=== PATIENT | female | born 1960 | race Caucasian/White ===

== ENCOUNTER 2018-09-18 11:21 | Inpatient (IN) | payer BC ==
[2018-09-12 14:39] LABS: BASOPHILS # (AUTO) 0.1 X10'3 (0-0.2); BASOPHILS % (AUTO) 0.9 % (0-1); EOSINOPHILS # (AUTO) 0.1 X10'3 (0-0.9); EOSINOPHILS % (AUTO) 1.3 % (0-6); LYMPHOCYTES # (AUTO) 1.8 X10'3 (1.1-4.8); LYMPHOCYTES % (AUTO) 24.6 % (21-51); MEAN CORPUSCULAR HEMOGLOBIN 28.9 PG (27.0-31.0); MEAN CORPUSCULAR HGB CONC 32.7 g/dL (33.0-36.5); MEAN CORPUSCULAR VOLUME 88.5 FL (78-98); MEAN PLATELET VOLUME 7.7 FL (7.4-10.4); MONOCYTES # (AUTO) 0.7 X10'3 (0-0.9); MONOCYTES % (AUTO) 9.5 % (2-12); NEUTROPHILS # (AUTO) 4.7 X10'3 (1.8-7.7); NEUTROPHILS % (AUTO) 63.7 % (42-75); PRE OP HEMATOCRIT 41.2 % (35.0-45.0); PRE OP HEMOGLOBIN 13.5 g/dL (12.0-16.0); PRE OP PLATELET COUNT 308 X10'3 (140-440); RED BLOOD COUNT 4.65 X10'6 (4.20-5.60); RED CELL DISTRIBUTION WIDTH 14.2 % (11.5-14.5)
[2018-09-12 14:47] LABS: PRE OP PROTIME 10.3 SECONDS (9.0-12.0)
[2018-09-12 14:59] LABS: ALBUMIN 3.5 G/DL (3.4-5.0); ALBUMIN/GLOBULIN RATIO 0.7 (1.1-1.5); ALKALINE PHOSPHATASE 124 IU/L (46-116); BLOOD UREA NITROGEN 19 MG/DL (7-18); BUN/CREATININE RATIO 24.4 (6.6-38.0); CALCIUM 9.1 MG/DL (8.5-10.1); CHLORIDE 109 MMOL/L (99-107); CREATININE 0.78 MG/DL (0.40-0.90); PRE OP ALT 33 U/L (30-65); PRE OP ANION GAP 8 (8-16); PRE OP AST 14 U/L (10-37); PRE OP BILIRUB, TOTAL 0.3 MG/DL (0.0-1.0); PRE OP GLUCOSE 93 MG/DL (70-104); PRE OP POTASSIUM 4.1 MMOL/L (3.4-5.1); PRE OP SODIUM 142 MMOL/L (135-145); TOTAL CARBON DIOXIDE 24.9 MMOL/L (24-32); TOTAL PROTEIN 8.2 G/DL (6.4-8.2); eGFR 76 ML/MIN
[~2018-09-18] VITALS: Ht 160 cm; Wt 91.2 kg
[2018-09-18] VITALS (14 sets, daily range): BP systolic 95–133; BP diastolic 59–87
[~2018-09-18 11:21] MED LIST: ACET-2615 PO; HYDROmorphone 1 mg/ml syringe IV PRN; HYDROmorphone inj. 0.5 MG/0.5 ML DISP.SYRIN IV PRN; LEVO125T PO; acetaminophen 325mg tablet PO PRN; bisacodyl 10mg suppository rectal RC PRN; diphenhydrAMINE 25mg capsule PO PRN; magnesium hydroxide 30ml (MOM) UD suspension PO PRN; ondansetron/PF 4mg/2ml inj IV PRN
[2018-09-18] MEDS ORDERED: ringers solution, lacted 1,000 ML IV SCH ×2 (12:15→16:56)
[2018-09-18] MEDS ORDERED: cefazolin/dext.iso 2gm/100 ML IV ONE (12:15)
[2018-09-18] MEDS ORDERED: famotidine 20mg tablet PO ONE (12:15)
[2018-09-18] MEDS ORDERED: vancomycin inj 1,500 MG in normal saline 300ml IV soln IV ONE (12:15)
[2018-09-18] MEDS: acetaminophen 325mg tablet PO SCH ×2 (14:00→20:31)
[2018-09-18] MEDS ORDERED: ROPIVAcaine 0.5% (5mg/ml) 30ml vial ONE ×2 (14:04→18:42)
[2018-09-18] MEDS ORDERED: ketorolac trometh. 30mg/ml inj. ONE (14:04)
[2018-09-18] MEDS ORDERED: tranexamic acid inj. 900 MG in normal saline 100ml IV soln 100 ML IV ONE ×6 (14:40→22:15)
[2018-09-18] MEDS ORDERED: tetracaine 1% (10mg/ml) pres. free inj. ONE (14:52)
[2018-09-18] MEDS ORDERED: fentaNYL/PF 50MCG/1 ML 2ML syringe ONE (15:40)
[2018-09-18] MEDS ORDERED: MIDAZolam 1mg/ml 10ml vial ONE (15:40)
[2018-09-18] MEDS: ceFAZolin 1GM/D5W- ADD-VANTAGE 50 ML IV SCH ×2 (16:00→23:45)
[2018-09-18] MEDS ORDERED: ePHEDrine 50MG/ML INJ. ONE (16:12)
[2018-09-18] MEDS ORDERED: propofol inj 20 ML IV ONE ×3 (16:51→18:42)
[2018-09-18] MEDS ORDERED: ROPIVAcaine 0.2%/PF PAIN PUMP 550 ML IJ SCH (16:56)
[2018-09-18] MEDS ORDERED: ondansetron/PF 4mg/2ml inj IV PRN (17:00)
[2018-09-18] MEDS ORDERED: meperidine/PF 25mg/ml syringe IV PRN ×3 (17:00)
[2018-09-18] MEDS ORDERED: proCHLORperazine 10 MG/2 ml inj IV PRN (17:00)
[2018-09-18] MEDS ORDERED: morphine 4 MG/ML inj SYRINge IV PRN ×2 (17:00)
[2018-09-18] MEDS: potassium cl 20mEq in 1/2 NS 1,000 ML IV SCH ×2 (18:10→20:29)
--- NOTE | 2018-09-18 19:15 | NUR ---
Received from OR via BED , accompanied by Anesthesiologist DR DUKES and report given by Anesthesiolgist. PATIENT WAKING UP, DENIES PAIN, V/S WNL, NEUROVASCULAR CHECKS INTACT, 20G PIV LUE , CATERINA DRESSING TO LEFT KNEE CDI W/ COLD POWDER PACK AND ON QUE BALL AND W/ SCD ON. F/C DRAINING CLEAR YELLOW URINE. SENSATION T-11.
--- NOTE | 2018-09-18 19:55 | NUR ---
PATIENT A&OX4, DENIES PAIN, V/S WNL, NEUROVASCULAR CHECKS INTACT, 20G PIV LUE , CATERINA DRESSING TO LEFT KNEE CDI W/ COLD POWDER PACK AND ON QUE BALL AND W/ SCD ON. F/C DRAINING CLEAR YELLOW URINE. SENSATION T-11. . PATIENT TAKEN TO 4015 WITH ALL BELONGINGS AND HOOKED UP TO MONITORS IN ROOM AND REPORT GIVEN TO [employer] REPAIRER WHO HAS TAKEN OVER PATIENT CARE.
[2018-09-18] MEDS ORDERED: vancomycin/NS 1 GM ADD-VANTAGE 250 ML IV SCH (20:00)
[2018-09-18] MEDS: sennosides 8.6mg tablet PO SCH (20:32)
[2018-09-18] MEDS: oxyCODONE IR 5mg (immed. release) tablet PO PRN (23:43)
[2018-09-19] MEDS: acetaminophen 325mg tablet PO SCH ×4 (01:21→20:43)
[2018-09-19 02:00] VITALS: BP 108/63
[2018-09-19] MEDS: potassium cl 20mEq in 1/2 NS 1,000 ML IV SCH ×3 (02:10→18:10)
[2018-09-19] MEDS: oxyCODONE IR 5mg (immed. release) tablet PO PRN ×4 (04:29→20:44)
[2018-09-19 06:00] VITALS: BP 102/63
--- NOTE | 2018-09-19 06:20 | NUR ---
Problems reprioritized. Patient report given, questions answered & plan of care reviewed with Bre KING.
--- NOTE | 2018-09-19 06:51 | NUR ---
Problems reprioritized. Patient report given, questions answered & plan of care reviewed with Rosamaria KING.
[2018-09-19 07:17] LABS: BASOPHILS % (AUTO) 0.6 % (0-1); EOSINOPHILS # (AUTO) 0.1 X10'3 (0-0.9); EOSINOPHILS % (AUTO) 0.9 % (0-6); HEMATOCRIT 33.2 % (35.0-45.0); HEMOGLOBIN 11.1 g/dl (12.0-16.0); LYMPHOCYTES % (AUTO) 14.5 % (21-51); MEAN CORPUSCULAR HEMOGLOBIN 30.3 PG (27.0-31.0); MEAN CORPUSCULAR HGB CONC 33.4 g/dL (33.0-36.5); MEAN CORPUSCULAR VOLUME 90.6 FL (78-98); MEAN PLATELET VOLUME 7.8 FL (7.4-10.4); MONOCYTES # (AUTO) 0.7 X10'3 (0-0.9); MONOCYTES % (AUTO) 9.4 % (2-12); NEUTROPHILS # (AUTO) 5.3 X10'3 (1.8-7.7); NEUTROPHILS % (AUTO) 74.6 % (42-75); PLATELET COUNT 202 X10'3 (140-440); RED BLOOD COUNT 3.67 X10'6 (4.20-5.60); RED CELL DISTRIBUTION WIDTH 14.3 % (11.5-14.5); WHITE BLOOD COUNT 7.1 X10'3 (4.5-11.0)
[2018-09-19 07:35] LABS: ANION GAP 8 (8-16); CHLORIDE 107 MMOL/L (99-107); POTASSIUM 4.4 MMOL/L (3.5-5.1); SODIUM 139 MMOL/L (135-145); TOTAL CARBON DIOXIDE 24.2 MMOL/L (24-32)
[2018-09-19] MEDS: aspirin 325mg tablet PO SCH (07:53)
[2018-09-19] MEDS ORDERED: levoTHYROXINE 125mcg tablet PO SCH (08:00)
[2018-09-19 10:00] VITALS: BP 106/64
[2018-09-19] MEDS: levoTHYROXINE 175mcg tablet PO SCH (11:49)
--- NOTE | 2018-09-19 11:56 | NUR ---
Joint replacement consult: Pt seen by CRYSTAL for written/verbal high protein ed. RD reviewed high protein needs for wound healing, immune strength, high protein foods, and protein supplementation options. RD contact information provided in case of further questions. Pt agrees to chocolate ensure pudding TIDWM; dietary notified. Addendum: 09/19/18 at [address] Amended: Links added.
[2018-09-19 14:00] VITALS: BP 112/70
[2018-09-19 18:00] VITALS: BP 116/68
--- NOTE | 2018-09-19 18:16 | NUR ---
Problems reprioritized. Patient report given, questions answered & plan of care reviewed with Kacy KING.
--- NOTE | 2018-09-19 18:30 | NUR ---
Patient in room [facility]TH[facility] 4015. I have received report from CHRISTINE PIEDRA and had the opportunity to ask questions and assume patient care.
[2018-09-19] MEDS: sennosides 8.6mg tablet PO SCH (20:42)
[2018-09-19] MEDS: celeCOXIB 100mg capsule PO SCH (20:42)
[2018-09-19 22:00] VITALS: BP 118/78
[2018-09-20] MEDS: acetaminophen 325mg tablet PO SCH ×2 (01:27→07:30)
[2018-09-20] MEDS: oxyCODONE IR 5mg (immed. release) tablet PO PRN ×3 (01:28→12:35)
[2018-09-20] MEDS: potassium cl 20mEq in 1/2 NS 1,000 ML IV SCH (02:10)
[2018-09-20 05:51] LABS: BASOPHILS # (AUTO) 0.1 X10'3 (0-0.2); BASOPHILS % (AUTO) 1.1 % (0-1); EOSINOPHILS # (AUTO) 0.1 X10'3 (0-0.9); HEMATOCRIT 32.4 % (35.0-45.0); HEMOGLOBIN 10.9 g/dl (12.0-16.0); LYMPHOCYTES # (AUTO) 1.2 X10'3 (1.1-4.8); LYMPHOCYTES % (AUTO) 19.8 % (21-51); MEAN CORPUSCULAR HEMOGLOBIN 30.2 PG (27.0-31.0); MEAN CORPUSCULAR HGB CONC 33.5 g/dL (33.0-36.5); MEAN CORPUSCULAR VOLUME 90.2 FL (78-98); MEAN PLATELET VOLUME 8.2 FL (7.4-10.4); MONOCYTES # (AUTO) 0.6 X10'3 (0-0.9); MONOCYTES % (AUTO) 10.1 % (2-12); NEUTROPHILS # (AUTO) 3.9 X10'3 (1.8-7.7); PLATELET COUNT 181 X10'3 (140-440); RED BLOOD COUNT 3.59 X10'6 (4.20-5.60); RED CELL DISTRIBUTION WIDTH 14.1 % (11.5-14.5); WHITE BLOOD COUNT 5.8 X10'3 (4.5-11.0)
[2018-09-20 06:00] VITALS: BP 137/77
--- NOTE | 2018-09-20 06:16 | NUR ---
Problems reprioritized. Patient report given, questions answered & plan of care reviewed with CHRISTINE ELIZABETH.
[2018-09-20] MEDS: aspirin 325mg tablet PO SCH (07:30)
[2018-09-20] MEDS: celeCOXIB 100mg capsule PO SCH (07:30)
[2018-09-20] MEDS: levoTHYROXINE 175mcg tablet PO SCH (07:30)
[2018-09-20] MEDS ORDERED: ASPI-1 PO (07:59)
[2018-09-20 10:00] VITALS: BP 144/86
[2018-09-20] MEDS ORDERED: acetaminophen 325mg tablet PO PRN (10:10)
== END 2018-09-20 14:15 | disposition home health service (06) | DRG 470 ==
LOC: PAS IN 11:21 → EDSTATUS 14:15 → ORTHO 4S 19:53
PROVIDERS: ADMIT Orthopaedic Surgery; ATTEND Orthopaedic Surgery
PROC: 3E0T3BZ Introduction of Anesthetic Agent into Peripheral Nerves and Plexi, Percutaneous Approach (ICD-10-PCS; 2018-09-18)
PROC: 8E0YXBZ Computer Assisted Procedure of Lower Extremity (ICD-10-PCS; 2018-09-18)
PROC: 8E0YXCZ Robotic Assisted Procedure of Lower Extremity (ICD-10-PCS; 2018-09-18)
PROC: 0SRD069 Replacement of Left Knee Joint with Oxidized Zirconium on Polyethylene Synthetic Substitute, Cemented, Open Approach (ICD-10-PCS; principal; 2018-09-18 15:32)
DX: M17.0 Bilateral primary osteoarthritis of knee (principal); D62 Acute posthemorrhagic anemia; E03.9 Hypothyroidism, unspecified; Z98.84 Bariatric surgery status; Z88.8 Allergy status to other drugs, medicaments and biological substances; Z80.9 Family history of malignant neoplasm, unspecified; Z79.899 Other long term (current) drug therapy
CPT/HCPCS: Z7506; Z7508; 36415; 80051; 80053; 82948; 84443; 85025; 85610; 85730; 87070; 87075; 87081; 97110; 97116; 97161; 97530; A4215; A4615; A6454; A7000; C1713; C1758; C1776; G0378; J0690; J1170; J1885; J2250; J2704; J2795; J3010; J3370; J3480; J7120

== ENCOUNTER 2019-01-22 05:19 | Inpatient (IN) | payer BC ==
[2019-01-07 16:46] LABS: BASOPHILS % (AUTO) 0.8 % (0-1); EOSINOPHILS # (AUTO) 0.1 X10'3 (0-0.9); EOSINOPHILS % (AUTO) 1.5 % (0-6); LYMPHOCYTES # (AUTO) 1.6 X10'3 (1.1-4.8); LYMPHOCYTES % (AUTO) 27.1 % (21-51); MEAN CORPUSCULAR HEMOGLOBIN 28.4 PG (27.0-31.0); MEAN CORPUSCULAR VOLUME 86.2 FL (78-98); MEAN PLATELET VOLUME 7.9 FL (7.4-10.4); MONOCYTES # (AUTO) 0.7 X10'3 (0-0.9); MONOCYTES % (AUTO) 12.6 % (2-12); NEUTROPHILS # (AUTO) 3.3 X10'3 (1.8-7.7); PRE OP HEMATOCRIT 40.6 % (35.0-45.0); PRE OP HEMOGLOBIN 13.4 g/dL (12.0-16.0); PRE OP PLATELET COUNT 264 X10'3 (140-440); RED BLOOD COUNT 4.71 X10'6 (4.20-5.60); RED CELL DISTRIBUTION WIDTH 15.5 % (11.5-14.5)
[2019-01-07 17:02] LABS: ALBUMIN 3.7 G/DL (3.4-5.0); ALBUMIN/GLOBULIN RATIO 0.8 (1.1-1.5); ALKALINE PHOSPHATASE 116 IU/L (46-116); BLOOD UREA NITROGEN 15 MG/DL (7-18); BUN/CREATININE RATIO 22.1 (6.6-38.0); CALCIUM 9.8 MG/DL (8.5-10.1); CHLORIDE 107 MMOL/L (99-107); CREATININE 0.68 MG/DL (0.40-0.90); PRE OP ALT 23 U/L (30-65); PRE OP ANION GAP 8 (8-16); PRE OP AST 19 U/L (10-37); PRE OP BILIRUB, TOTAL 0.2 MG/DL (0.0-1.0); PRE OP GLUCOSE 98 MG/DL (70-104); PRE OP POTASSIUM 4.1 MMOL/L (3.4-5.1); PRE OP SODIUM 143 MMOL/L (135-145); TOTAL CARBON DIOXIDE 27.7 MMOL/L (24-32); TOTAL PROTEIN 8.3 G/DL (6.4-8.2); eGFR 89 ML/MIN
[~2019-01-22] VITALS: Ht 162.6 cm; Wt 88.6 kg
[2019-01-22] VITALS (16 sets, daily range): BP systolic 93–122; BP diastolic 56–82
[~2019-01-22 05:19] MED LIST changes: -ACET-2615 PO; -HYDROmorphone 1 mg/ml syringe IV PRN; -HYDROmorphone inj. 0.5 MG/0.5 ML DISP.SYRIN IV PRN; -acetaminophen 325mg tablet PO PRN; -bisacodyl 10mg suppository rectal RC PRN; -diphenhydrAMINE 25mg capsule PO PRN; -magnesium hydroxide 30ml (MOM) UD suspension PO PRN; -ondansetron/PF 4mg/2ml inj IV PRN; +ringers solution, lacted 1,000 ML IV SCH
[2019-01-22] MEDS ORDERED: vancomycin inj 1,500 MG in normal saline 300ml IV soln IV ONE (05:30)
[2019-01-22] MEDS ORDERED: tranexamic acid inj. 880 MG in normal saline 100ml IV soln 100 ML IV ONE ×5 (05:30→15:00)
[2019-01-22] MEDS ORDERED: famotidine 10mg tablet PO ONE (05:30)
[2019-01-22] MEDS ORDERED: cefazolin/dext.iso 2gm/100ml 100 ML IV ONE (05:30)
[2019-01-22] MEDS ORDERED: ketorolac trometh. 30mg/ml inj. ONE (06:53)
[2019-01-22] MEDS ORDERED: ROPIVAcaine 0.5% (5mg/ml) 30ml vial ONE ×2 (06:54→11:22)
[2019-01-22] MEDS ORDERED: labetalol 20mg/4ml (5mg/ml) syringe IV PRN (07:55)
[2019-01-22] MEDS ORDERED: hydrALAZINE 20mg/ml inj. IV PRN (07:55)
[2019-01-22] MEDS ORDERED: morphine 4 MG/ML inj SYRINge IV PRN ×2 (07:55)
[2019-01-22] MEDS ORDERED: fentaNYL/PF 50MCG/1 ML 2ML syringe IV PRN ×2 (07:55)
[2019-01-22] MEDS ORDERED: ringers solution, lacted 1,000 ML IV SCH (07:55)
[2019-01-22] MEDS ORDERED: ondansetron/PF 4mg/2ml inj IV PRN ×2 (07:55→12:05)
[2019-01-22] MEDS ORDERED: tetracaine 1% (10mg/ml) pres. free inj. ONE (07:57)
[2019-01-22] MEDS ORDERED: fentaNYL/PF 50MCG/1 ML 2ML syringe ONE (08:00)
[2019-01-22] MEDS ORDERED: MIDAZolam 1mg/ml 10ml vial ONE (08:00)
[2019-01-22] MEDS ORDERED: morphine /PF 1mg/ml 10ml inj. ONE (08:00)
[2019-01-22] MEDS ORDERED: ROPIVAcaine 0.2% (10 MG/5 ML) BOLUS INJECTION ADDCANAL PRN (08:30)
[2019-01-22] MEDS ORDERED: mineral oil 10ml sterile, topical TP ONE (08:50)
[2019-01-22] MEDS ORDERED: propofol inj 20 ML IV ONE ×2 (09:38)
[2019-01-22] MEDS ORDERED: LIDOcaine 2% (20mg/ml) 5ml vial ONE (09:38)
[2019-01-22] MEDS ORDERED: diphenhydrAMINE 50 mg/ml inj ONE (09:51)
--- NOTE | 2019-01-22 11:23 | NUR ---
Received from OR via , accompanied by Anesthesiologist and report given by Anesthesiolgist. VSS CHARTED, CATERINA DRESSING TO RIGHT KNEE. CDI WITH ICE PACK IN PLACE. SCD'S IN PLACE. Sensation at [facility]. WILL CONTINUE TO MONITOR.
[2019-01-22] MEDS ORDERED: magnesium hydroxide 30ml (MOM) UD suspension PO PRN (12:05)
[2019-01-22] MEDS ORDERED: bisacodyl 10mg suppository rectal RC PRN (12:05)
[2019-01-22] MEDS ORDERED: diphenhydrAMINE 25mg capsule PO PRN ×2 (12:05)
[2019-01-22] MEDS ORDERED: acetaminophen 325mg tablet PO PRN (12:05)
[2019-01-22] MEDS ORDERED: oxyCODONE IR 5mg (immed. release) tablet PO PRN (12:05)
[2019-01-22] MEDS ORDERED: HYDROmorphone inj. 0.5 MG/0.5 ML DISP.SYRIN IV PRN (12:05)
[2019-01-22] MEDS ORDERED: HYDROmorphone 1 mg/ml syringe IV PRN (12:05)
[2019-01-22] MEDS: ROPIVAcaine 0.2%/PF PUMP/bolus 550 ML ADDCANAL SCH ×3 (12:38→23:27)
--- NOTE | 2019-01-22 13:33 | NUR ---
PATIENT DISCHARGE CRITERIA MET. REPORT CALLED TO SRUTHI RN ON STATISTICIAN APPLIED, ALL QUESTIONS AND CONCERNS ADDRESSED. CATERINA DRESSING TO RIGHT KNEE WITH ICE PACK CDI. SCD'S AND F/C IN PLACE. [address] TO RIGHT FA IVF INFUSING. TRANSFERRED VIA HOSPITAL BED WITH ALL PERSONAL BELONGINGS ACCOMPANIED BY STAFF
[2019-01-22] MEDS: acetaminophen 325mg tablet PO SCH ×2 (14:00→21:20)
[2019-01-22] MEDS: ceFAZolin 1GM/D5W- ADD-VANTAGE 50 ML IV SCH ×2 (17:44→23:27)
[2019-01-22] MEDS: potassium cl 20mEq in 1/2 NS 1,000 ML IV SCH ×2 (17:46→20:02)
--- NOTE | 2019-01-22 19:12 | NUR ---
Patient in room [facility]TH[facility] 4016. I have received report from CHRISTINE Gresham and had the opportunity to ask questions and assume patient care.
[2019-01-22] MEDS ORDERED: vancomycin/NS 1 GM ADD-VANTAGE 250 ML IV SCH (20:00)
[2019-01-22] MEDS: sennosides 8.6mg tablet PO SCH (21:19)
[2019-01-23 02:00] VITALS: BP 104/60
[2019-01-23] MEDS: acetaminophen 325mg tablet PO SCH ×4 (03:46→20:30)
[2019-01-23] MEDS: potassium cl 20mEq in 1/2 NS 1,000 ML IV SCH ×3 (03:50→19:22)
[2019-01-23] MEDS: oxyCODONE IR 5mg (immed. release) tablet PO PRN ×5 (05:26→23:49)
--- NOTE | 2019-01-23 06:15 | NUR ---
Patient in room [facility]TH[facility] 4016. I have received report from GEORGE KING and had the opportunity to ask questions and assume patient care.
--- NOTE | 2019-01-23 06:18 | NUR ---
Problems reprioritized. Patient report given, questions answered & plan of care reviewed with CHRISTINE Sheehan.
[2019-01-23 06:28] VITALS: BP 95/57
[2019-01-23 06:39] LABS: BASOPHILS % (AUTO) 0.8 % (0-1); EOSINOPHILS # (AUTO) 0.1 X10'3 (0-0.9); EOSINOPHILS % (AUTO) 2.2 % (0-6); HEMATOCRIT 32.1 % (35.0-45.0); HEMOGLOBIN 10.9 g/dl (12.0-16.0); LYMPHOCYTES # (AUTO) 0.6 X10'3 (1.1-4.8); LYMPHOCYTES % (AUTO) 11.2 % (21-51); MEAN CORPUSCULAR HEMOGLOBIN 29.4 PG (27.0-31.0); MEAN CORPUSCULAR HGB CONC 33.8 g/dL (33.0-36.5); MEAN CORPUSCULAR VOLUME 86.9 FL (78-98); MEAN PLATELET VOLUME 7.6 FL (7.4-10.4); MONOCYTES # (AUTO) 0.4 X10'3 (0-0.9); MONOCYTES % (AUTO) 7.8 % (2-12); NEUTROPHILS # (AUTO) 4.2 X10'3 (1.8-7.7); PLATELET COUNT 179 X10'3 (140-440); RED CELL DISTRIBUTION WIDTH 15.5 % (11.5-14.5); WHITE BLOOD COUNT 5.3 X10'3 (4.5-11.0)
[2019-01-23 06:49] LABS: ANION GAP 10 (8-16); CHLORIDE 104 MMOL/L (99-107); POTASSIUM 4.2 MMOL/L (3.5-5.1); SODIUM 136 MMOL/L (135-145); TOTAL CARBON DIOXIDE 21.7 MMOL/L (24-32)
[2019-01-23] MEDS ORDERED: levoTHYROXINE 125mcg tablet PO SCH (08:00)
[2019-01-23] MEDS: ROPIVAcaine 0.2% (10 MG/5 ML) BOLUS INJECTION ADDCANAL PRN ×3 (08:32→12:28)
[2019-01-23] MEDS: ROPIVAcaine 0.2%/PF PUMP/bolus 550 ML ADDCANAL SCH ×3 (08:32→23:49)
[2019-01-23] MEDS: aspirin 325mg tablet PO SCH (08:32)
[2019-01-23] MEDS: levoTHYROXINE 175mcg tablet PO SCH (08:33)
[2019-01-23 11:18] VITALS: BP 110/68
[2019-01-23 14:00] VITALS: BP 120/76
[2019-01-23 18:00] VITALS: BP 146/78
--- NOTE | 2019-01-23 18:18 | NUR ---
Problems reprioritized. Patient report given, questions answered & plan of care reviewed with DAMARIS KING.
[2019-01-23] MEDS: sennosides 8.6mg tablet PO SCH (20:30)
[2019-01-23 22:00] VITALS: BP 133/62
[2019-01-24] MEDS: acetaminophen 325mg tablet PO SCH ×2 (02:06→07:19)
[2019-01-24] MEDS: potassium cl 20mEq in 1/2 NS 1,000 ML IV SCH (04:02)
[2019-01-24] MEDS: oxyCODONE IR 5mg (immed. release) tablet PO PRN ×2 (05:01→10:25)
[2019-01-24 06:00] VITALS: BP 146/80
--- NOTE | 2019-01-24 06:34 | NUR ---
Patient in room [facility]TH[facility] 4016. I have received report from Inga KING and had the opportunity to ask questions and assume patient care.
[2019-01-24 06:40] LABS: BASOPHILS % (AUTO) 0.5 % (0-1); EOSINOPHILS # (AUTO) 0.1 X10'3 (0-0.9); EOSINOPHILS % (AUTO) 1.1 % (0-6); HEMATOCRIT 28.2 % (35.0-45.0); HEMOGLOBIN 9.6 g/dl (12.0-16.0); LYMPHOCYTES # (AUTO) 0.6 X10'3 (1.1-4.8); LYMPHOCYTES % (AUTO) 12.7 % (21-51); MEAN CORPUSCULAR HEMOGLOBIN 29.3 PG (27.0-31.0); MEAN PLATELET VOLUME 7.8 FL (7.4-10.4); MONOCYTES # (AUTO) 0.7 X10'3 (0-0.9); MONOCYTES % (AUTO) 13.9 % (2-12); NEUTROPHILS # (AUTO) 3.4 X10'3 (1.8-7.7); NEUTROPHILS % (AUTO) 71.8 % (42-75); PLATELET COUNT 161 X10'3 (140-440); RED BLOOD COUNT 3.28 X10'6 (4.20-5.60); RED CELL DISTRIBUTION WIDTH 14.6 % (11.5-14.5); WHITE BLOOD COUNT 4.8 X10'3 (4.5-11.0)
[2019-01-24] MEDS: aspirin 325mg tablet PO SCH (07:19)
[2019-01-24] MEDS: levoTHYROXINE 175mcg tablet PO SCH (07:19)
[2019-01-24 10:00] VITALS: BP 115/79
[2019-01-24] MEDS ORDERED: ASPI-1 PO (10:44)
--- NOTE | 2019-01-24 12:04 | NUR ---
Patient stable for discharge today with family. All DC instructions given to patient, IV out and all belongings sent with patient.
[2019-01-24] MEDS ORDERED: acetaminophen 325mg tablet PO PRN (12:05)
== END 2019-01-24 11:45 | disposition home or self-care (01) | DRG 470 ==
LOC: PAS IN 05:19 → EDSTATUS 08:30 → ORTHO 4S 13:30
PROVIDERS: ADMIT Orthopaedic Surgery; ATTEND Orthopaedic Surgery
PROC: 3E0T3BZ Introduction of Anesthetic Agent into Peripheral Nerves and Plexi, Percutaneous Approach (ICD-10-PCS; 2019-01-22)
PROC: 8E0YXBZ Computer Assisted Procedure of Lower Extremity (ICD-10-PCS; 2019-01-22)
PROC: 8E0YXCZ Robotic Assisted Procedure of Lower Extremity (ICD-10-PCS; 2019-01-22)
PROC: 0SRC069 Replacement of Right Knee Joint with Oxidized Zirconium on Polyethylene Synthetic Substitute, Cemented, Open Approach (ICD-10-PCS; principal; 2019-01-22 09:14)
DX: M17.11 Unilateral primary osteoarthritis, right knee (principal); D62 Acute posthemorrhagic anemia; M25.561 Pain in right knee; Z96.652 Presence of left artificial knee joint; E03.9 Hypothyroidism, unspecified; E66.01 Morbid (severe) obesity due to excess calories; Z68.33 Body mass index [BMI] 33.0-33.9, adult; Z79.899 Other long term (current) drug therapy
CPT/HCPCS: Z7506; Z7508; 36415; 80051; 80053; 82948; 84443; 85025; 87081; 93005; 97110; 97116; 97161; 97530; A4215; A6454; A7000; C1713; C1758; C1776; G0378; J0690; J1200; J1885; J2001; J2250; J2270; J2704; J2795; J3010; J3370; J3480; J7120